=== PATIENT | male | born 1945 ===

== ENCOUNTER 2016-09-08 00:58 | Emergency (ER) | payer MEDICARE ==
[2016-09-08] MEDS ORDERED: Albuterol-Ipratrop 3 mg / 0.5 (3 ml) UD INH STA (01:50)
--- NOTE | 2016-09-08 02:10 | ED PDOC ---
HPI: CCC, URI, Sore Throat Time Seen by Provider: 09/08/16 01:06 Chief Complaint (Nursing): Shortness Of Breath Chief Complaint (Provider): cough History Per: Patient History/Exam Limitations: no limitations Have you had recent travel within the past 21 days to any of the following countries: [place], [place], [place] or [place]?: No Onset/Duration Of Symptoms: Days Current Symptoms Are (Timing): Still Present Associated Symptoms: Other (SOB ) Additional Complaint(s): 71yo male presents to the ED with c/o cough for years with associated SOB for a couple hours as per EMS. Pt denies any SOB but reports cough for a long time. Patient drinks daily and admits to alcohol use today. Denies chest pain or any other medical complaints. Past Medical History Reviewed: Historical Data, Nursing Documentation, Vital Signs Vital Signs: Last Vital Signs Temp 98.9 F 09/08/16 05:33 Pulse 88 09/08/16 05:33 Resp 18 09/08/16 05:33 BP 134/92 H 09/08/16 05:33 Pulse Ox 96 09/08/16 05:59 - Medical History PMH: Depression, Gastrointestinal Ulcer Denies: Chronic Kidney Disease - Surgical History Surgical History: No Surg Hx - Family History Family History: States: No Known Family Hx - Social History Alcohol: Other (daily) - Immunization History Hx Tetanus Toxoid Vaccination: No Hx Influenza Vaccination: No Hx Pneumococcal Vaccination: No - Home Medications Home Medications: Ambulatory Orders Medication Instructions Recorded Naproxen [Naprosyn Tab] 375 mg PO BID PRN #20 tab 08/25/16 Albuterol HFA [Ventolin HFA 90 2 puff IH [id number] #1 inh 09/08/16 mcg/actuation (8 g)] Azithromycin [Z-Nitin] 250 mg PO DAILY #6 tab 09/08/16 Benzonatate [Tessalon Perles] 100 mg PO Q8 PRN #15 sgl 09/08/16 - Allergies Allergies/Adverse Reactions: Allergies Allergy/AdvReac Type Severity Reaction Status Date / Time No Known Allergies Allergy Verified 08/31/16 21:04 Review of Systems ROS Statement: Except As Marked, All Systems Reviewed And Found Negative Constitutional: Negative for: Fever Cardiovascular: Negative for: Chest Pain Respiratory: Positive for: Cough, Shortness of Breath Physical Exam - Reviewed Nursing Documentation Reviewed: Yes Vital Signs Reviewed: Yes - Physical Exam Appears: Positive for: Well, No Acute Distress Head Exam: Positive for: ATRAUMATIC, NORMAL INSPECTION, NORMOCEPHALIC Skin: Positive for: Normal Color, Warm, Dry Eye Exam: Positive for: Normal appearance ENT: Positive for: Normal ENT Inspection Neck: Positive for: Normal, Painless ROM, Supple Cardiovascular/Chest: Positive for: Regular Rate, Rhythm. Negative for: Murmur , Tachycardia Respiratory: Positive for: Normal Breath Sounds. Negative for: Wheezing, Respiratory Distress Gastrointestinal/Abdominal: Positive for: Normal Exam, Bowel Sounds, Soft. Negative for: Tenderness, Distended Back: Positive for: Normal Inspection Extremity: Positive for: Normal ROM, Swelling (mild edema BLE that is chronic ) . Negative for: Deformity Neurologic/Psych: Positive for: Alert, Oriented. Negative for: Motor/Sensory Deficits - Laboratory Results Result Diagrams: 09/08/16 01:50 09/08/16 01:50 - ECG ECG: Positive for: Interpreted By Me, Viewed By Me ECG Rhythm: Positive for: Normal QRS, Normal ST Segment, Sinus Rhythm, Sinus Tachycardia. Negative for: ST/T Changes O2 Sat by Pulse Oximetry: 96 Pulse Ox Interpretation: Normal (RA) - Radiology X-Ray: Interpreted by Me, Viewed By Me X-Ray Interpretation: No Acute Disease - Progress Re-evaluation Time: 05:54 Condition: Re-examined, Improved Medical Decision Making Medical Decision Makin: Impression: bronchitis vs. pneumonia; alcohol intoxication Plan: Labs EKG CXR duoneb 3ml INH reassess 1800 Improved. Stable for discharge. Scribe Attestation: Documented by Araceli Jackson acting as a scribe for Edin Garrison MD. Provider Scribe Attestation: All medical record entries made by the Scribe were at my direction and personally dictated by me. I have reviewed the chart and agree that the record accurately reflects my personal performance of the history, physical exam, medical decision making, and the department course for this patient. I have also personally directed, reviewed, and agree with the discharge instructions and disposition. Disposition - Clinical Impression Clinical Impression: Acute bronchitis - Patient ED Disposition Is Patient to be Admitted: No Doctor Will See Patient In The: Office Counseled Patient/Family Regarding: Studies Performed, Diagnosis, Need For Followup - Disposition Referrals: [facility] [Outside] Disposition: Routine/Home Disposition Time: 05:54 Condition: GOOD Prescriptions: Albuterol HFA [Ventolin HFA 90 mcg/actuation (8 g)] 2 puff IH [id number] #1 inh Benzonatate [Tessalon Perles] 100 mg PO Q8 PRN #15 sgl PRN Reason: Cough Azithromycin [Z-Nitin] 250 mg PO DAILY #6 tab Instructions: Acute Bronchitis (ED)
[2016-09-08] MEDS ORDERED: Albuterol-Ipratrop 3 mg / 0.5 (3 ml) UD ONE (02:12)
[2016-09-08 02:44] LABS: BASO % 0.5 % (0.0-2.0); EOS # 0.1 K/uL (0.0-0.7); EOS % 2.4 % (0.0-4.0); HEMATOCRIT 32.5 % (35.0-51.0); LYMPH # 0.3 K/uL (1.0-4.3); LYMPH % 6.8 % (20.0-40.0); MEAN CORPUSCULAR HEMOGLOBIN 32.7 pg (27.0-31.0); MEAN CORPUSCULAR HGB CONC 32.1 g/dL (33.0-37.0); MEAN PLATELET VOLUME 7.4 fl (7.2-11.7); MONO # 0.1 K/uL (0.0-0.8); MONO % 3.5 % (0.0-10.0); NEUT # 3.7 K/uL (1.8-7.0); NEUT % 86.8 % (50.0-75.0); PLATELET COUNT 239 K/uL (130-400); RED CELL DISTRIBUTION WIDTH 17.5 % (11.5-14.5); WHITE BLOOD COUNT 4.3 K/uL (4.8-10.8)
[2016-09-08 02:57] LABS: ALCOHOL SERUM 174 mg/dl (0-10); BLOOD UREA NITROGEN 17 mg/dl (9-20); CALCIUM 8.3 mg/dL (8.4-10.2); CARBON DIOXIDE 18 mmol/L (22-30); CHLORIDE 110 mmol/L (98-107); GFR AFRICAN-AMERICAN > 60; GLUCOSE,RANDOM 131 mg/dL (75-110); POTASSIUM 4.2 MMOL/L (3.6-5.0); SODIUM 146 mmol/l (132-148)
[2016-09-08 03:44] LABS: NEUTROPHIL 91 % (42-75); TOTAL CELLS COUNTED 100
[2016-09-08 03:45] LABS: LARGE PLATELETS PRESENT
[2016-09-08 05:35] VITALS: BP 134/92; PULSE 88; RESP 18; TEMP 98.9
[2016-09-08 05:56] VITALS: O2SAT 96
--- NOTE | 2016-09-08 10:23 | RAD ---
HISTORY: cough COMPARISON: Chest x-ray performed 01/28/15 TECHNIQUE: Chest, one view. FINDINGS: LUNGS: Bibasilar atelectasis or infiltrates. Small left pleural effusion. No definite pneumothorax. Please note that chest x-ray has limited sensitivity for the detection of pulmonary masses. CARDIOVASCULAR: Cardiomegaly. Ectatic aorta containing dense atherosclerotic calcifications. OSSEOUS STRUCTURES: Partially imaged right metallic plate and screw fixation of the humerus. Acromioclavicular arthropathy. Osseous demineralization. Degenerative changes of the spine and shoulders. VISUALIZED UPPER ABDOMEN: Unremarkable. OTHER FINDINGS: None. IMPRESSION: Bibasilar atelectasis or infiltrates. Small left pleural effusion. Cardiomegaly. Ectatic aorta.
--- NOTE | 2016-09-08 20:03 | CARD ---
APPROVED REPORT EKG Measurement Heart [id number] <Conclusion> Sinus tachycardia Minimal voltage criteria for LVH, may be normal variant Junctional ST depression, probably normal Borderline ECG
== END 2016-09-08 06:15 | disposition home or self-care (01) ==
LOC: H.ER 00:58
DX: J20.9 Acute bronchitis, unspecified (principal); Z86.59 Personal history of other mental and behavioral disorders
CPT/HCPCS: 71010; 80048; 83880; 84484; 85025; 87804; 93005; 94150; 94640; 99285; G0480

== ENCOUNTER 2016-11-06 03:34 | Observation (INO) | payer MEDICARE ==
--- NOTE | 2016-11-06 04:06 | ED PDOC ---
HPI: Psych/Substance Abuse Time Seen by Provider: 11/06/16 03:49 Chief Complaint (Nursing): Alcohol Ingestion Chief Complaint (Provider): etoh History Per: Patient, EMS Additional Complaint(s): Pt brought in for public intoxication, pt admits to drinking tonight. Pt offers no complaints. Past Medical History Reviewed: Historical Data, Nursing Documentation, Vital Signs Vital Signs: Last Vital Signs Temp 98.0 F 11/06/16 03:42 Pulse 62 11/06/16 03:42 Resp 17 11/06/16 03:42 BP 125/75 11/06/16 03:42 Pulse Ox 100 11/06/16 03:42 - Medical History PMH: Depression, Gastrointestinal Ulcer, HTN (denies) Denies: Chronic Kidney Disease - Family History Family History: States: No Known Family Hx - Social History Current smoker - smoking cessation education provided: No Alcohol: > 2 Drinks/Day Drugs: Denies - Immunization History Hx Tetanus Toxoid Vaccination: No Hx Influenza Vaccination: No Hx Pneumococcal Vaccination: No - Home Medications Home Medications: Ambulatory Orders Medication Instructions Recorded Acetaminophen [Tylenol] 325 mg PO Q6 PRN #30 tab 10/16/16 - Allergies Allergies/Adverse Reactions: Allergies Allergy/AdvReac Type Severity Reaction Status Date / Time No Known Allergies Allergy Verified 08/31/16 21:04 Review of Systems ROS Statement: Except As Marked, All Systems Reviewed And Found Negative Physical Exam - Reviewed Nursing Documentation Reviewed: Yes Vital Signs Reviewed: Yes - Physical Exam Appears: Positive for: Well, Non-toxic, No Acute Distress Head Exam: Positive for: ATRAUMATIC, NORMAL INSPECTION, NORMOCEPHALIC Skin: Positive for: Normal Color, Warm, DRY Eye Exam: Positive for: Normal appearance, EOMI (pinpoint pupils B/L) Neck: Positive for: Normal, Painless ROM Cardiovascular/Chest: Positive for: Regular Rate, Rhythm Respiratory: Positive for: CNT, Normal Breath Sounds Gastrointestinal/Abdominal: Positive for: Normal Exam, Bowel Sounds, Soft. Negative for: Tenderness Extremity: Positive for: Normal ROM Neurologic/Psych: Positive for: Alert, Oriented. Negative for: Motor/Sensory Deficits - ECG O2 Sat by Pulse Oximetry: 100 ED OBSERVATION Date of observation admission: 11/06/16 Time of observation admission: 04:08 - Observation admission statement Patient is being placed in observation because:: intoxication - Goals of Observation Goals of observation are:: sobriety - Progress Note Progress Note: 11/06/16 05:[address] Garrison pending sobriety. Disposition - Clinical Impression Clinical Impression: Alcohol abuse - Patient ED Disposition Is Patient to be Admitted: Transfer of Care - Disposition Disposition: Transfer of Care Disposition Time: 05:29 Condition: STABLE
--- NOTE | 2016-11-06 06:39 | ED PDOC ---
- ECG O2 Sat by Pulse Oximetry: 100 Medical Decision Making Medical Decision Making: Pt s/o from [facility] at 0600 pending sobriety. Pt s/o to Dr. Garg at 0700 pending sobriety. Scribe Attestation: Documented by Araceli Jackson acting as a scribe for Edin Garrison MD. Provider Scribe Attestation: All medical record entries made by the Scribe were at my direction and personally dictated by me. I have reviewed the chart and agree that the record accurately reflects my personal performance of the history, physical exam, medical decision making, and the department course for this patient. I have also personally directed, reviewed, and agree with the discharge instructions and disposition. Disposition Doctor Will See Patient In The: Office Counseled Patient/Family Regarding: Studies Performed, Diagnosis, Need For Followup - Clinical Impression Clinical Impression: Alcohol abuse - POA Present On Arrival: None - Disposition Disposition: Transfer of Care Disposition Time: 07:00 Condition: STABLE Patient Signed Over To: Anne Garg Handoff Comments: pending sobriety
--- NOTE | 2016-11-06 07:08 | ED PDOC ---
- ECG O2 Sat by Pulse Oximetry: 100 (RA) Pulse Ox Interpretation: Normal Medical Decision Making Medical Decision Makin:00 Patient was signed out to me by Edin Garrison MD pending clinical sobriety and final disposition. ~ Scribe Attestation: Documented by Tracy Spear, acting as a scribe for Anne Garg MD. Provider Scribe Attestation: All medical record entries made by the Scribe were at my direction and personally dictated by me. I have reviewed the chart and agree that the record accurately reflects my personal performance of the history, physical exam, medical decision making, and the department course for this patient. I have also personally directed, reviewed, and agree with the discharge instructions and disposition. Disposition Doctor Will See Patient In The: Office Counseled Patient/Family Regarding: Diagnosis, Need For Followup - Clinical Impression Clinical Impression: Alcohol abuse - POA Present On Arrival: None - Disposition Disposition: Routine/Home Disposition Time: 14:36 Condition: STABLE
[2016-11-06 14:40] VITALS: BP 130/84; PULSE 76; RESP 18; TEMP 98
[2016-11-07 11:50] VITALS: O2SAT 100
== END 2016-11-06 15:38 | disposition home or self-care (01) ==
LOC: H.ER 03:34 → H.EROBSV 04:09
PROVIDERS: ADMIT Emergency Medicine; ATTEND Emergency Medicine
DX: F10.10 Alcohol abuse, uncomplicated (principal); Y90.8 Blood alcohol level of 240 mg/100 ml or more
CPT/HCPCS: 36415; 82948; 99283; G0378; G0480

== ENCOUNTER 2016-11-06 20:44 | Observation (INO) | payer MEDICARE ==
--- NOTE | 2016-11-06 21:29 | ED PDOC ---
HPI: Psych/Substance Abuse <Calvin Mcfadden - Last Filed: 11/07/16 01:02> Chief Complaint (Provider): Alcohol Ingestion History/Exam Limitations: intoxication Current Symptoms Are (Timing): Still Present Additional Complaint(s): 71 y/o male with a history of alcohol abuse presents to the emergency department via EMS for acute alcohol intoxication prior to arrival. Patient was discharged at 07:00 am this morning. Patient admits to drinking agains today and he offers no medical complaints upon arrival this evening. <Georgina Maldonado - Last Filed: 11/07/16 12:49> Time Seen by Provider: 11/06/16 21:23 Chief Complaint (Nursing): Alcohol Ingestion Past Medical History Vital Signs: Last Vital Signs Temp 98.2 F 11/06/16 21:18 Pulse 82 11/06/16 21:18 Resp 18 11/06/16 21:18 BP 133/85 11/06/16 21:18 Pulse Ox 97 11/06/16 21:32 <Calvin Mcfadden - Last Filed: 11/07/16 01:02> Reviewed: Historical Data, Nursing Documentation, Vital Signs Vital Signs: Last Vital Signs Temp 98.2 F 11/06/16 21:18 Pulse 82 11/06/16 21:18 Resp 18 11/06/16 21:18 BP 133/85 11/06/16 21:18 Pulse Ox 97 11/06/16 21:18 - Medical History PMH: Depression, Gastrointestinal Ulcer, HTN (denies) - Family History Family History: States: No Known Family Hx - Social History Alcohol: > 2 Drinks/Day Drugs: Denies <Georgina Maldonado - Last Filed: 11/07/16 12:49> - Home Medications Home Medications: Ambulatory Orders Medication Instructions Recorded Acetaminophen [Tylenol] 325 mg PO Q6 PRN #30 tab 10/16/16 - Allergies Allergies/Adverse Reactions: Allergies Allergy/AdvReac Type Severity Reaction Status Date / Time No Known Allergies Allergy Verified 08/31/16 21:04 Review of Systems ROS Statement: Except As Marked, All Systems Reviewed And Found Negative Review Of Systems: ROS cannot be obtained secondary to pt's inabilty to answer questions. Psych: Positive for: Other (etoh) <Georgina Maldonado - Last Filed: 11/07/16 12:49> Physical Exam - Reviewed Nursing Documentation Reviewed: Yes Vital Signs Reviewed: Yes - Physical Exam Appears: Positive for: Non-toxic, No Acute Distress Head Exam: Positive for: ATRAUMATIC, NORMAL INSPECTION, NORMOCEPHALIC Skin: Positive for: Normal Color, Warm, Dry Eye Exam: Positive for: Normal appearance ENT: Positive for: Normal ENT Inspection Cardiovascular/Chest: Positive for: Regular Rate, Rhythm Respiratory: Positive for: Normal Breath Sounds. Negative for: Respiratory Distress Extremity: Positive for: Normal ROM. Negative for: Pedal Edema Neurologic/Psych: Positive for: Alert, Oriented, Other (intoxicated, answers some questions appropriately) <Georgina Maldonado - Last Filed: 11/07/16 12:49> - ECG O2 Sat by Pulse Oximetry: 97 (RA) Pulse Ox Interpretation: Normal <Georgina Maldonado - Last Filed: 11/07/16 12:49> Medical Decision Making Medical Decision Making: Time: 21:23 Initial Impression: Alcohol Intoxication Initial Plan: BAL Fingerstick - 112 Scribe Attestation: Documented by Penelope Pitts acting as a scribe for Georgina Maldonado PA-C. Provider Scribe Attestation: All medical record entries made by the Scribe were at my direction and personally dictated by me. I have reviewed the chart and agree that the record accurately reflects my personal performance of the history, physical exam, medical decision making, and the department course for this patient. I have also personally directed, reviewed, and agree with the discharge instructions and disposition. <Georgina Maldonado - Last Filed: 11/07/16 12:49> Disposition - Patient ED Disposition Is Patient to be Admitted: Transfer of Care (PENDING SOBRIETY) - Disposition Disposition: Transfer of Care Disposition Time: 00:00 <Calvin Mcfadden - Last Filed: 11/07/16 01:02> - Disposition Disposition: Transfer of Care Patient Signed Over To: Calvin Mcfadden Handoff Comments: Signed out pending sobriety and final disposition <Georgina Maldonado - Last Filed: 11/07/16 12:49> - Clinical Impression Clinical Impression: Alcohol intoxication - Disposition Condition: IMPROVED
--- NOTE | 2016-11-07 01:24 | ED PDOC ---
- ECG O2 Sat by Pulse Oximetry: 97 (RA) Pulse Ox Interpretation: Normal Medical Decision Making Medical Decision Making: Time: 0000 Transfer of Care from [facility] Pending Sobriety 0312 Sleeping comfortably. Easily arousable. 0545 Gait steady unassisted. Clinically sober. Scribe Attestation: Documented by Stephanie Marion, acting as a scribe for Calvin Hernandez MD Scribe Attestation: All medical record entries made by the Scribe were at my direction and personally dictated by me. I have reviewed the chart and agree that the record accurately reflects my personal performance of the history, physical exam, medical decision making, and the department course for this patient. I have also personally directed, reviewed, and agree with the discharge instructions and disposition. Transfer of Care from [facility] Disposition - Clinical Impression Clinical Impression: Alcohol intoxication - POA Present On Arrival: None - Disposition Disposition: Routine/Home Disposition Time: 05:47 Condition: IMPROVED
[2016-11-07 05:35] VITALS: BP 155/99; PULSE 88; RESP 16; TEMP 98.3
[2016-11-07 05:48] VITALS: O2SAT 97
== END 2016-11-07 06:17 | disposition home or self-care (01) ==
LOC: H.ER 20:44 → H.EROBSV 22:45
PROVIDERS: ADMIT Emergency Medicine; ATTEND Emergency Medicine
DX: F10.129 Alcohol abuse with intoxication, unspecified (principal); I10 Essential (primary) hypertension; F32.9 Major depressive disorder, single episode, unspecified
CPT/HCPCS: 36415; 82948; 99283; G0378; G0480

== ENCOUNTER 2016-11-18 03:49 | Observation (INO) | payer MEDICARE ==
--- NOTE | 2016-11-18 04:06 | ED PDOC ---
HPI: Psych/Substance Abuse Time Seen by Provider: 11/18/16 03:59 Chief Complaint (Nursing): Alcohol Ingestion Chief Complaint (Provider): etoh History Per: Patient, EMS Additional History Per: Patient, EMS Additional Complaint(s): 71 y/o male brought in by EMS for acute alcohol intoxication. Patient admits to drinking "many" beers. Denies acute medical or psychiatric complaints. Past Medical History Reviewed: Historical Data, Nursing Documentation, Vital Signs Vital Signs: Last Vital Signs Temp 97.9 F 11/18/16 03:54 Pulse 77 11/18/16 03:54 Resp 18 11/18/16 03:54 BP 121/73 11/18/16 03:54 Pulse Ox 96 11/18/16 03:54 - Medical History PMH: Depression, Gastrointestinal Ulcer, HTN (denies) Denies: Chronic Kidney Disease - Family History Family History: States: Unknown Family Hx - Immunization History Hx Tetanus Toxoid Vaccination: No Hx Influenza Vaccination: No Hx Pneumococcal Vaccination: No - Home Medications Home Medications: Ambulatory Orders Medication Instructions Recorded Acetaminophen [Tylenol] 325 mg PO Q6 PRN #30 tab 10/16/16 - Allergies Allergies/Adverse Reactions: Allergies Allergy/AdvReac Type Severity Reaction Status Date / Time No Known Allergies Allergy Verified 08/31/16 21:04 Review of Systems ROS Statement: Except As Marked, All Systems Reviewed And Found Negative Physical Exam - Reviewed Nursing Documentation Reviewed: Yes Vital Signs Reviewed: Yes - Physical Exam Appears: Positive for: Well, Non-toxic, No Acute Distress Head Exam: Positive for: ATRAUMATIC, NORMAL INSPECTION, NORMOCEPHALIC Skin: Positive for: Normal Color ENT: Positive for: Normal ENT Inspection Cardiovascular/Chest: Positive for: Regular Rate, Rhythm Respiratory: Positive for: Normal Breath Sounds Back: Positive for: Normal Inspection Extremity: Positive for: Normal ROM Neurologic/Psych: Positive for: Alert, Other (+slurred, speech) - ECG O2 Sat by Pulse Oximetry: 96 ED OBSERVATION Date of observation admission: 11/18/16 Time of observation admission: 05:33 - Observation admission statement Patient is being placed in observation because:: acute alcohol intoxication - Goals of Observation Goals of observation are:: observe for clinical sobriety - Progress Note Progress Note: 11/18/16 05:34 Patient sleeping; no distress Disposition - Clinical Impression Clinical Impression: Alcohol abuse - Disposition Disposition: Transfer of Care Disposition Time: :01 Condition: STABLE Patient Signed Over To: Srinivasa Francis Handoff Comments: pending sobriety
--- NOTE | 2016-11-18 07:02 | ED PDOC ---
- ECG O2 Sat by Pulse Oximetry: 96 Medical Decision Making Medical Decision Makin Patient signed out to me from JENNIFER Bailon pending sobriety. Scribe Attestation: Documented by Trice Ortiz acting as a scribe for Srinivasa Francis MD. Scribe Attestation: All medical record entries made by the Scribe were at my direction and personally dictated by me. I have reviewed the chart and agree that the record accurately reflects my personal performance of the history, physical exam, medical decision making, and the department course for this patient. I have also personally directed, reviewed, and agree with the discharge instructions and disposition. Disposition - Clinical Impression Clinical Impression: Alcohol abuse - POA Present On Arrival: None - Disposition Disposition: Transfer of Care Disposition Time: 07:00 Condition: STABLE Patient Signed Over To: Mickey Seay Handoff Comments: Pending sobriety
--- NOTE | 2016-11-18 08:08 | ED PDOC ---
- ECG O2 Sat by Pulse Oximetry: 96 - Progress Re-evaluation Time: 08:07 Condition: Improved (Awake alert oriented x 3 no focal neuro deficits) Disposition - Clinical Impression Clinical Impression: Alcohol abuse - POA Present On Arrival: None - Disposition Disposition: Routine/Home Disposition Time: 08:08 Condition: FAIR
[2016-11-18 08:57] VITALS: BP 133/70; PULSE 76; RESP 18; TEMP 98; O2SAT 99
== END 2016-11-18 08:57 | disposition home or self-care (01) ==
LOC: H.ER 03:49 → H.EROBSV 05:33
PROVIDERS: ADMIT Emergency Medicine; ATTEND Emergency Medicine
DX: F10.129 Alcohol abuse with intoxication, unspecified (principal); Y90.8 Blood alcohol level of 240 mg/100 ml or more; I10 Essential (primary) hypertension; Z87.11 Personal history of peptic ulcer disease
CPT/HCPCS: 82948; 99283; G0378; G0480

== ENCOUNTER 2016-12-09 15:11 | Observation (INO) | payer MEDICARE ==
[2016-12-09 15:24] VITALS: BP 97/57; PULSE 82; RESP 18; TEMP 98; O2SAT 98
[2016-12-09 16:10] LABS: BASO # 0.1 K/uL (0.0-0.2); BASO % 2.4 % (0.0-2.0); EOS # 0.4 K/uL (0.0-0.7); EOS % 7.3 % (0.0-4.0); HEMOGLOBIN 10.7 g/dL (12.0-18.0); LYMPH # 2.1 K/uL (1.0-4.3); LYMPH % 38.1 % (20.0-40.0); MEAN CELL VOLUME 99.2 fl (80.0-94.0); MEAN CORPUSCULAR HEMOGLOBIN 31.9 pg (27.0-31.0); MEAN CORPUSCULAR HGB CONC 32.1 g/dL (33.0-37.0); MEAN PLATELET VOLUME 7.6 fl (7.2-11.7); MONO # 0.8 K/uL (0.0-0.8); NEUT # 2.1 K/uL (1.8-7.0); NEUT % 38.2 % (50.0-75.0); NRBC % 0.1 % (0.0-0.0); RBC 3.34 Mil/uL (4.40-5.90); RED CELL DISTRIBUTION WIDTH 18.2 % (11.5-14.5); WHITE BLOOD COUNT 5.5 K/uL (4.8-10.8)
--- NOTE | 2016-12-09 16:12 | ED PDOC ---
HPI: Psych/Substance Abuse Time Seen by Provider: 12/09/16 15:32 Chief Complaint (Nursing): Alcohol Ingestion Chief Complaint (Provider): Alcohol Ingestion History/Exam Limitations: intoxication Onset/Duration Of Symptoms: Hrs Current Symptoms Are (Timing): Still Present Additional Complaint(s): 71 y/o male presents to the emergency department via EMS after found intoxication. Patient was recently release from alf and has been drinking frequently. Patient has similar visited in November for the same reasons. Denies psychiatric complaints or trauma. Past Medical History Reviewed: Historical Data, Nursing Documentation, Vital Signs Vital Signs: Last Vital Signs Temp 98 F 12/09/16 15:21 Pulse 82 12/09/16 15:21 Resp 18 12/09/16 15:21 BP 97/57 L 12/09/16 15:21 Pulse Ox 98 12/09/16 15:21 - Medical History PMH: Depression, Gastrointestinal Ulcer, HTN (denies) Denies: Chronic Kidney Disease - Surgical History Surgical History: No Surg Hx - Family History Family History: States: Unknown Family Hx - Social History Current smoker - smoking cessation education provided: No Alcohol: Social Drugs: Denies - Immunization History Hx Tetanus Toxoid Vaccination: No Hx Influenza Vaccination: No Hx Pneumococcal Vaccination: No - Home Medications Home Medications: Ambulatory Orders Medication Instructions Recorded Acetaminophen [Tylenol] 325 mg PO Q6 PRN #30 tab 10/16/16 - Allergies Allergies/Adverse Reactions: Allergies Allergy/AdvReac Type Severity Reaction Status Date / Time No Known Allergies Allergy Verified 08/31/16 21:04 Review of Systems Review Of Systems: ROS cannot be obtained secondary to pt's inabilty to answer questions. Physical Exam - Reviewed Nursing Documentation Reviewed: Yes Vital Signs Reviewed: Yes - Physical Exam Appears: Positive for: Non-toxic, No Acute Distress (Appears disheveled with poor hygiene. ) Head Exam: Positive for: ATRAUMATIC, NORMAL INSPECTION, NORMOCEPHALIC Skin: Positive for: Normal Color, Warm, Dry ENT: Positive for: Normal ENT Inspection (Alcohol on breath noted. ). Negative for: Pharyngeal Erythema Cardiovascular/Chest: Positive for: Regular Rate, Rhythm. Negative for: Murmur Respiratory: Positive for: Normal Breath Sounds. Negative for: Respiratory Distress Extremity: Positive for: Normal ROM. Negative for: Pedal Edema, Other (No gross trauma noted. ) Neurologic/Psych: Positive for: Oriented - Laboratory Results Result Diagrams: 12/09/16 15:55 12/09/16 15:55 - ECG O2 Sat by Pulse Oximetry: 98 (RA) Pulse Ox Interpretation: Normal Medical Decision Making Medical Decision Making: Time: 15:52 Initial impression: Alcohol Intoxication Initial plan: --Alcohol Serum STAT --Basic Metabolic Panel --CBC w/ differential --AccuCheck --Reevaluation Scribe Attestation: Documented by Penelope Pitts, acting as a scribe for Nas Cavanaugh MD. Provider Scribe Attestation: All medical record entries made by the Scribe were at my direction and personally dictated by me. I have reviewed the chart and agree that the record accurately reflects my personal performance of the history, physical exam, medical decision making, and the department course for this patient. I have also personally directed, reviewed, and agree with the discharge instructions and disposition. ED OBSERVATION Date of observation admission: 12/09/16 Time of observation admission: 16:08 - Observation admission statement Patient is being placed in observation because:: intoxication and need for hemodynamic monitoring - Goals of Observation Goals of observation are:: sobriety, improved gait and decision making - Progress Note Progress Note: Re-eval: 12/09/16 1630 remains somnolent but arousable 12/09/16 1810 improving, more awake and communicative 12/09/16 1906 improved, awake and ambulatory Disposition - Clinical Impression Clinical Impression: Alcohol abuse with alcohol-induced disorder - Patient ED Disposition Is Patient to be Admitted: No Counseled Patient/Family Regarding: Studies Performed, Diagnosis - Disposition Disposition: Transfer of Care Disposition Time: 18:05 Condition: STABLE
[2016-12-09 16:32] LABS: BLOOD UREA NITROGEN 19 mg/dl (9-20); CALCIUM 9.1 mg/dL (8.4-10.2); GFR AFRICAN-AMERICAN > 60; GFR NON-AFRICAN AMERICAN 60
[2016-12-09] MEDS ORDERED: Potassium Chloride 20 mEq ER Tab PO ONE (17:07)
== END 2016-12-09 19:08 | disposition home or self-care (01) ==
LOC: H.ER 15:11 → H.EROBSV 18:05
PROVIDERS: ADMIT Emergency Medicine; ATTEND Emergency Medicine
DX: F10.19 Alcohol abuse with unspecified alcohol-induced disorder (principal); Y90.6 Blood alcohol level of 120-199 mg/100 ml; F32.9 Major depressive disorder, single episode, unspecified
CPT/HCPCS: 80048; 82948; 85025; 99283; G0378; G0480

== ENCOUNTER 2017-01-14 00:03 | Observation (INO) | payer MEDICARE ==
[2017-01-14 00:08] VITALS: O2SAT 98
--- NOTE | 2017-01-14 01:21 | ED PDOC ---
HPI: Psych/Substance Abuse Time Seen by Provider: 01/14/17 00:16 Chief Complaint (Nursing): Lower Extremity Problem/Injury Chief Complaint (Provider): Intoxication ED Caveat: Intoxicated History Per: Patient History/Exam Limitations: intoxication Current Symptoms Are (Timing): Still Present Suicide/Self Injury Attempted (Context): None Modifying Factor(s): Alcohol Additional Complaint(s): 71 year old male brought in by EMS presents to ED due to alcoholic intoxication and has a past medical history of alcohol abuse. Patient states that he fell a few days ago but sustained no trauma and is walking normally. EMS states that patient was found on intoxicated on the streets. PCP: Dr. Pham Past Medical History Reviewed: Historical Data, Nursing Documentation, Vital Signs Vital Signs: Last Vital Signs Temp 98.7 F 01/14/17 00:05 Pulse 82 01/14/17 00:05 Resp 16 01/14/17 00:05 BP 131/85 01/14/17 00:05 Pulse Ox 98 01/14/17 00:05 - Medical History PMH: Depression, Gastrointestinal Ulcer, HTN (denies) Denies: No Chronic Diseases, Chronic Kidney Disease - Family History Family History: States: Unknown Family Hx - Social History Alcohol: > 2 Drinks/Day Drugs: Denies - Immunization History Hx Tetanus Toxoid Vaccination: No Hx Influenza Vaccination: No Hx Pneumococcal Vaccination: No - Home Medications Home Medications: Ambulatory Orders Medication Instructions Recorded Ibuprofen [Motrin Tab] 600 mg PO Q6 #30 tab 01/14/17 - Allergies Allergies/Adverse Reactions: Allergies Allergy/AdvReac Type Severity Reaction Status Date / Time No Known Allergies Allergy Verified 08/31/16 21:04 Review of Systems Review Of Systems: ROS cannot be obtained secondary to pt's inabilty to answer questions. Physical Exam - Reviewed Nursing Documentation Reviewed: Yes Vital Signs Reviewed: Yes - Physical Exam Appears: Positive for: Non-toxic, No Acute Distress Head Exam: Positive for: ATRAUMATIC, NORMOCEPHALIC Skin: Positive for: Normal Color, Warm, Dry Eye Exam: Positive for: Normal appearance, EOMI, PERRL ENT: Positive for: Normal ENT Inspection Neck: Positive for: Normal, Painless ROM, Supple Cardiovascular/Chest: Positive for: Regular Rate, Rhythm. Negative for: Bradycardia Respiratory: Positive for: Normal Breath Sounds. Negative for: Respiratory Distress Gastrointestinal/Abdominal: Positive for: Normal Exam, Soft. Negative for: Tenderness Back: Positive for: Normal Inspection Extremity: Positive for: Normal ROM, Other (No signs of trauma). Negative for: Deformity Neurologic/Psych: Negative for: Oriented, Motor/Sensory Deficits - ECG O2 Sat by Pulse Oximetry: 98 (RA) Pulse Ox Interpretation: Normal Medical Decision Making Medical Decision Makin Initial impression: alcohol intoxication Initial plan: * EtOH serum * Accucheck * ED OBS ADMISSION All further documentation will take place in the ED OBS section of the chart. Scribe Attestation: Documented by Trice Ortiz acting as a scribe for Srinivasa Francis MD. Scribe Attestation: All medical record entries made by the Scribe were at my direction and personally dictated by me. I have reviewed the chart and agree that the record accurately reflects my personal performance of the history, physical exam, medical decision making, and the department course for this patient. I have also personally directed, reviewed, and agree with the discharge instructions and disposition. ED OBSERVATION Discharge: Yes Date of observation admission: 01/14/17 Time of observation admission: 00:44 - Observation admission statement Patient is being placed in observation because:: Alcohol intoxication - Goals of Observation Goals of observation are:: Clinical sobriety - Progress Note Progress Note: 01/14/17 01:31 Patient resting comfortably. Vitals stable. 01/14/17 03:00 Patient resting comfortably. Vitals stable. 01/14/17 04:15 Patient resting comfortably. Vitals stable. 01/14/17 05:30 Patient resting comfortably. Vitals stable. 01/14/17 06:20 Patient is awake, A&Ox3 and walks with a steady gait. Patient is stable for discharge home. Disposition - Clinical Impression Clinical Impression: Alcohol abuse - Disposition Disposition: Routine/Home Disposition Time: 00:44 Condition: FAIR - Pt Status Changed To: Hospital Disposition Of: Observation
[2017-01-14 06:25] VITALS: BP 136/79; PULSE 81; RESP 17; TEMP 98.3
== END 2017-01-14 06:17 | disposition home or self-care (01) ==
LOC: H.ER 00:03 → H.EROBSV 00:44
PROVIDERS: ADMIT Emergency Medicine; ATTEND Emergency Medicine
DX: F10.129 Alcohol abuse with intoxication, unspecified (principal); Y90.8 Blood alcohol level of 240 mg/100 ml or more; I10 Essential (primary) hypertension; F32.9 Major depressive disorder, single episode, unspecified
CPT/HCPCS: 82948; 99284; G0378; G0480

== ENCOUNTER 2017-02-07 05:43 | Emergency (ER) | payer MEDICARE, MEDICAID ==
[2017-02-07 05:51] VITALS: BP 116/68; PULSE 64; RESP 16; TEMP 97.7; O2SAT 99
--- NOTE | 2017-02-07 06:53 | ED PDOC ---
HPI: General Adult Time Seen by Provider: 02/07/17 06:20 Chief Complaint (Nursing): Lower Extremity Problem/Injury Chief Complaint (Provider): ETOH History Per: Patient, EMS History/Exam Limitations: no limitations Onset/Duration Of Symptoms: Unknown Have you had recent travel within the past 21 days to any of the following countries: [place], [place], [place] or [place]?: No Current Symptoms Are (Timing): Still Present Additional History Per: Patient, EMS Additional Complaint(s): 72 y/o male here this morning for evaluation by EMS for right leg pain, which he currently denies. He was seen at [facility] ED last night for ETOH, and is here for the same. Patient has a history of chronic alcohol use, denies any acute complaints at this time. Past Medical History Vital Signs: Last Vital Signs Temp 97.7 F 02/07/17 05:49 Pulse 64 02/07/17 05:49 Resp 16 02/07/17 05:49 BP 116/68 02/07/17 05:49 Pulse Ox 99 02/07/17 06:57 - Medical History PMH: Depression, Gastrointestinal Ulcer, HTN (denies) Denies: Chronic Kidney Disease - Surgical History Surgical History: No Surg Hx - Family History Family History: States: Unknown Family Hx - Social History Alcohol: > 2 Drinks/Day - Immunization History Hx Tetanus Toxoid Vaccination: No Hx Influenza Vaccination: No Hx Pneumococcal Vaccination: No - Home Medications Home Medications: Ambulatory Orders Medication Instructions Recorded No Known Home Med 01/26/17 - Allergies Allergies/Adverse Reactions: Allergies Allergy/AdvReac Type Severity Reaction Status Date / Time No Known Allergies Allergy Verified 02/06/17 09:27 Review of Systems ROS Statement: Except As Marked, All Systems Reviewed And Found Negative Physical Exam - Physical Exam Appears: Positive for: No Acute Distress Head Exam: Positive for: ATRAUMATIC, NORMAL INSPECTION, NORMOCEPHALIC Skin: Positive for: Normal Color, Warm, Dry Eye Exam: Positive for: PERRL Neck: Positive for: Normal, Supple Cardiovascular/Chest: Positive for: Regular Rate, Rhythm Respiratory: Positive for: Normal Breath Sounds Gastrointestinal/Abdominal: Positive for: Normal Exam, Bowel Sounds, Soft. Negative for: Tenderness, Guarding, Rebound, Hernia Extremity: Positive for: Normal ROM. Negative for: Tenderness, Deformity, Swelling Neurologic/Psych: Positive for: Alert, rough patcher II-XII, Oriented, Gait (stable). Negative for: Motor/Sensory Deficits - ECG O2 Sat by Pulse Oximetry: 99 (RA) Pulse Ox Interpretation: Normal Medical Decision Making Medical Decision Making: Impression; 72 y/o intoxicated male Records from [facility] reviewed. Accucheck 89 here. He is clinically sober and medically stable for discharge. Scribe Attestation: Documented by Kiera Hsu acting as a scribe for Marko Gay MD. Scribe Attestation: All medical record entries made by the Scribe were at my direction and personally dictated by me. I have reviewed the chart and agree that the record accurately reflects my personal performance of the history, physical exam, medical decision making, and the department course for this patient. I have also personally directed, reviewed, and agree with the discharge instructions and disposition. Disposition - Clinical Impression Clinical Impression: Alcohol abuse - Patient ED Disposition Is Patient to be Admitted: No Counseled Patient/Family Regarding: Diagnosis, Need For Followup - Disposition Referrals: [facility] [Outside] [facility] [Outside] Disposition: Routine/Home Disposition Time: 06:35 Condition: STABLE Additional Instructions: follow up with your primary doctor in 1-2 days return to the ED with any worsening or concerning symptoms Forms: [facility] (Grenadian) Print Language: COMORAN
== END 2017-02-07 06:54 | disposition home or self-care (01) ==
LOC: H.ER 05:43
DX: F10.10 Alcohol abuse, uncomplicated (principal); M25.561 Pain in right knee

== ENCOUNTER 2017-02-08 18:08 | Observation (INO) | payer MEDICARE, MEDICAID ==
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
[2017-02-08 22:33] VITALS: BP 114/63; PULSE 90; RESP 18; TEMP 98.5
[2017-02-08 22:38] VITALS: O2SAT 97
== END 2017-02-08 22:39 | disposition home or self-care (01) ==
LOC: H.ER 18:08 → H.EROBSV 19:03
PROVIDERS: ADMIT Emergency Medicine; ATTEND Emergency Medicine
DX: F10.129 Alcohol abuse with intoxication, unspecified (principal); Z87.11 Personal history of peptic ulcer disease
CPT/HCPCS: 82948; 99282; G0378; G0480

== ENCOUNTER 2017-02-10 18:31 | Emergency (ER) | payer MEDICARE, MEDICAID ==
[2017-02-10 18:44] VITALS: BP 120/69; PULSE 75; RESP 16; TEMP 97.9; O2SAT 100
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
--- NOTE | 2017-02-11 10:53 | RAD ---
PROCEDURE: Left Hip with pelvis X-ray Radiographs. HISTORY: left hip pain COMPARISON: None. FINDINGS: BONES: Diffuse osteopenia suggests osteoporosis. There is no acute fracture of the pelvic ring or the left hip joint. However, PA seen to be status post prior open reduction internal fixation of proximal left femur with reaches grid compression plate in position. No suspicious lytic or blastic changes seen throughout the pelvic ring or the left hip joint. Symphysis pubis appears intact. JOINTS: However, there is end-stage osteoarthritis of the left hip joint with the acetabulum deformed and the left femoral head flattened status post osteo necrosis. Prominent articular cortical sclerosis and osteophyte formation is appreciate throughout the left hip joint including the nonweightbearing portion. No erosive arthropathy type changes are appreciated nevertheless. Moderate degenerate changes seen at the bilateral sacroiliac and right hip joints. SOFT TISSUES: Normal. OTHER FINDINGS: None. IMPRESSION: 1. 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 2. Prior open reduction internal fixation proximal left femur with fracture healed at this time. 3. Diffuse osteopenia suggests osteoporosis. 4. Degenerate changes are seen at the bilateral sacroiliac and right hip joints. .
--- NOTE | 2017-02-11 11:08 | RAD ---
PROCEDURE: Left Femur Radiographs. HISTORY: hip pain COMPARISON: None. TECHNIQUE: AP and Lateral Radiographs of the left femur. FINDINGS: FEMUR: No acute fracture identified. A healed fracture is seen status post open reduction internal fixation by Laboy screw in the proximal left femur. Remainder of the left femur is unremarkable. Local soft tissues are nonfocal. Advanced osteoarthritis is seen at the left hip joint incidentally. SOFT TISSUES: Vascular calcifications seen the medial thigh soft tissues diffusely. OTHER FINDINGS: None. IMPRESSION: No acute fracture dislocation left femur. An old healed fracture reduced by a Laboy screw identified. No dislocation or subluxation.
== END 2017-02-10 20:37 | disposition home or self-care (01) ==
LOC: H.ER 18:31
DX: M16.12 Unilateral primary osteoarthritis, left hip (principal); G89.29 Other chronic pain

== ENCOUNTER 2018-07-13 20:04 | Emergency (ER) | payer MEDICAID, MEDICARE ==
[2018-07-13 22:34] VITALS: TEMP 98.5
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
[2018-07-14 05:07] VITALS: BP 118/73; PULSE 61; RESP 17
[2018-07-14 05:20] VITALS: O2SAT 98
== END 2018-07-14 05:55 | disposition home or self-care (01) ==
LOC: H.ER 20:04
DX: F10.129 Alcohol abuse with intoxication, unspecified (principal); F32.9 Major depressive disorder, single episode, unspecified; G89.29 Other chronic pain; I10 Essential (primary) hypertension

== ENCOUNTER 2018-08-03 03:40 | Emergency (ER) | payer MEDICARE ==
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
[2018-08-03 06:38] VITALS: BP 139/88; PULSE 78; RESP 16; TEMP 98.4; O2SAT 96
== END 2018-08-03 06:35 | disposition home or self-care (01) ==
LOC: H.ER 03:40
DX: M54.9 Dorsalgia, unspecified (principal)